=== PATIENT | male | born 1980 | race Caucasian/White ===

== ENCOUNTER 2022-09-05 08:37 | Emergency (ER) | payer SELFPAY ==
[2022-09-05] MEDS ORDERED: ONDANSETRON 4 MG/2 ML VIAL ONE (09:17)
[2022-09-05] MEDS ORDERED: NA CHLORIDE 0.9% 1,000 ML ONE ×2 (09:18→11:02)
[2022-09-05 09:24] LABS: Urine Blood Trace-intact (Negative); Urine Glucose Negative (Negative); Urine Protein 3+ (Negative); Urine Specific Gravity >=1.030 (1.005-1.030)
[2022-09-05 09:49] LABS: Absolute Lymphocytes (CBC) 1.9 K/uL (0.7-4.9); Hematocrit 48.8 % (39.6-49.0); Lymphocytes % 24.9 % (15.3-44.8); MCV 88.9 fL (80-100); MPV 8.1 fL (7.6-11.3); RBC Red Blood Cell Count 5.48 M/uL (4.33-5.43)
[2022-09-05 10:30] LABS: Albumin 4.1 g/dL (3.4-5.0); Bilirubin Total 0.5 mg/dL (0.2-1.0); Potassium 3.8 mmol/L (3.5-5.1)
--- NOTE | 2022-09-05 10:56 | EDPHYS ---
Physician Documentation [facility] Name: Noam Eli Age: 42 yrs Sex: Male : 1980 Arrival Date: 09/05/2022 Time: 08:42 Bed 12 Private MD: ED Physician Jacobo Lara HPI: 09/05 09:09 This 42 yrs old Male presents to ER via Ambulatory with complaints of Fever, Nausea, pm1 Body Aches. 09:09 The patient reports fever, that was measured at 100 degrees Fahrenheit. Onset: The pm1 symptoms/episode began/occurred 1 week(s) ago. Modifying factors: there are no obvious modifying factors. Associated signs and symptoms: Pertinent positives: cough, nausea, decreased appetite and PO consumption. Patient has been nibbling on food for the past week until last night, finally ate a full meal. Patient reports decreased PO fluids intake and reports dark urine. He is requesting IV fluids, Pertinent negatives: abdominal pain, chest pain, diarrhea, shortness of breath, sore throat, vomiting. Severity of symptoms: in the emergency department the symptoms have improved. The patient has not recently seen a physician, out of town, in [place]. Patient is here for work. Patient reports that he needs to be checked out in the ER prior to returning to work. Historical: - Allergies: 08:57 No Known Allergies; ss - PMHx: 08:57 Anxiety; Hypertensive disorder; Hypothyroidism; ss - Immunization history:: Client reports having NOT received the Covid vaccine. - Social history:: Smoking status: Patient reports the use of cigarette tobacco products, smokes one-half pack cigarettes per day. ROS: 09:09 Eyes: Negative for injury, pain, redness, and discharge, ENT: Negative for injury, pm1 pain, and discharge, Cardiovascular: Negative for chest pain, palpitations, and edema. 09:09 Back: Negative for injury and pain. 09:09 MS/Extremity: Negative for injury and deformity, Skin: Negative for injury, rash, and discoloration. 09:09 Neuro: Negative for headache, weakness, numbness, tingling, and seizure. 09:09 Constitutional: Positive for body aches, fever, poor PO intake. 09:09 Respiratory: Positive for cough, similar to his smoker's cough, Negative for shortness of breath. 09:09 Abdomen/GI: Positive for nausea, Negative for abdominal pain, vomiting, diarrhea. 09:09 : Positive for Dark urination and decreased amount of urine. Urinated only 4 times yesterday, Negative for flank pain, burning with urination. 09:09 All other systems are negative. Exam: 09:09 Constitutional: This is a well developed, well nourished patient who is awake, alert, pm1 and in no acute distress. Head/Face: Normocephalic, atraumatic. 09:09 Back: No spinal tenderness. No costovertebral tenderness. Full range of motion. Skin: Warm, dry with normal turgor. Normal color with no rashes, no lesions, and no evidence of cellulitis. MS/ Extremity: Pulses equal, no cyanosis. Neurovascular intact. Full, normal range of motion. 09:09 Eyes: Exam is negative for acute changes, Periorbital structures: appear normal, Extraocular movements: no acute changes, Conjunctiva: no acute changes, no injection. 09:09 ENT: Exam is negative for acute changes, Mouth: no acute changes, Lips: normal, moist, Oral mucosa: normal, pink and intact, moist. 09:09 Neck: Exam negative for acute changes. 09:09 Cardiovascular: Exam negative for acute changes, Rate: normal, Rhythm: regular, Pulses: no pulse deficits are appreciated, Heart sounds: normal, normal S1and S2. 09:09 Respiratory: Exam negative for acute changes, respiratory distress, shortness of breath, Breath sounds: are clear throughout. 09:09 Abdomen/GI: Inspection: obese Palpation: abdomen is soft and non-tender, in all quadrants. 09:09 Neuro: Exam negative for acute changes, Orientation: is normal, Mentation: is normal, Motor: is normal, moves all fours. Vital Signs: 08:55 BP 153 / 103; Pulse 91; Resp 16; Temp 98.2(O); Pulse Ox 100% on R/A; Weight 136.08 kg; ss Height 6 ft. 0 in. (182.88 cm); Pain 0/10; 08:55 Body Mass Index 40.69 (136.08 kg, 182.88 cm) ss MDM: 08:57 Patient medically screened. pm1 09:16 Data reviewed: vital signs. Data interpreted: Pulse oximetry: on room air is 100 %. pm1 Interpretation: normal. 09:16 ED course: Patient refused chest x-ray. pm1 10:53 Counseling: I had a detailed discussion with the patient and/or guardian regarding: the pm1 historical points, exam findings, and any diagnostic results supporting the discharge/admit diagnosis, lab results, radiology results, the need for outpatient follow up, to return to the emergency department if symptoms worsen or persist or if there are any questions or concerns that arise at home. 11:02 ED course: Patient requested another bag of IV fluids since he has not urinated with pm1 the initial IV fluids given. Zofran effective for his nausea. Will discharge the patient home with Zofran post IV fluid infusion. 09/05 08:57 Order name: CBC with Diff; Complete Time: 10:21 pm1 09/05 08:57 Order name: CMP; Complete Time: 10:53 pm1 09/05 08:57 Order name: Flu; Complete Time: 10:21 pm1 09/05 08:57 Order name: COVID-19 SARS RT PCR (Document "Date of Onset" if Symptomatic); Complete pm1 Time: 10:21 09/05 09:24 Order name: Urine Dipstick-Ancillary; Complete Time: 09:35 EDMS 09/05 08:57 Order name: IV Saline Lock; Complete Time: 09:42 pm1 09/05 08:57 Order name: Labs collected and sent; Complete Time: 09:42 pm1 09/05 08:57 Order name: Urine Dipstick-Ancillary (obtain specimen); Complete Time: 09:27 pm1 Administered Medications: 09:42 Drug: NS 0.9% 1000 ml Route: IV; Rate: 1 bolus; Site: left antecubital; ss 11:06 Follow up: IV Status: Completed infusion; IV Intake: 1000ml ss 09:43 Drug: Zofran (Ondansetron) 4 mg Route: IVP; Site: left antecubital; ss 11:07 Follow up: Response: No adverse reaction ss 11:06 Drug: NS 0.9% 1000 ml Route: IV; Rate: 1 bolus; Site: left antecubital; ss 11:53 Follow up: IV Status: Completed infusion; IV Intake: 1000ml ss Disposition Summary: 09/05/22 10:55 Discharge Ordered Location: Home pm1 Problem: new pm1 Symptoms: have improved pm1 Condition: Stable pm1 Diagnosis - Nausea pm1 - Viral infection, unspecified pm1 Followup: pm1 - With: Emergency Department - When: As needed - Reason: Worsening of condition Followup: pm1 - With: Private Physician - When: 2 - 3 days - Reason: Recheck today's complaints, Continuance of care, Re-evaluation by your physician Discharge Instructions: - Discharge Summary Sheet ss - Nausea, Adult pm1 - Viral Illness, Adult pm1 Forms: - Work release form ss - Medication Reconciliation Form pm1 - Thank You Letter pm1 - Antibiotic Education pm1 - Prescription Opioid Use pm1 Prescriptions: - ondansetron 4 mg Oral tablet,disintegrating - take 1 tablet by ORAL route every 8 hours As needed; 10 tablet; Refills: 0, pm1 Product Selection Permitted Signatures: Dispatcher [employer] Sonia Titus, RN RN ss Ayo Romero, FOLDING MACHINE OPERATOR FOLDING MACHINE OPERATOR pm1
--- NOTE | 2022-09-05 10:56 | ER ---
Nurse's Notes [facility] Name: Noam Eli Age: 42 yrs Sex: Male : 1980 Arrival Date: 09/05/2022 Time: 08:42 Bed 12 Private MD: Diagnosis: Nausea;Viral infection, unspecified Presentation: 09/05 08:55 Chief complaint: Patient states: fever, N/V and body aches x 1 week. Pt states he is ss feeling better, but still feels dehydrated. Requesting note for work. Coronavirus screen: Client presents with at least one sign or symptom that may indicate coronavirus-19. Ebola Screen: Patient denies exposure to infectious person. Patient denies travel to an Ebola-affected area in the 21 days before illness onset. Initial Sepsis Screen: Does the patient meet any 2 criteria? No. Patient's initial sepsis screen is negative. Does the patient have a suspected source of infection? No. Patient's initial sepsis screen is negative. Risk Assessment: Do you want to hurt yourself or someone else? Patient reports no desire to harm self or others. Onset of symptoms was August 29, 2022. 08:55 Method Of Arrival: Ambulatory ss 08:55 Acuity: NO 3 ss Historical: - Allergies: 08:57 No Known Allergies; ss - PMHx: 08:57 Anxiety; Hypertensive disorder; Hypothyroidism; ss - Immunization history:: Client reports having NOT received the Covid vaccine. - Social history:: Smoking status: Patient reports the use of cigarette tobacco products, smokes one-half pack cigarettes per day. Screenin:17 Abuse screen: Denies threats or abuse. Denies injuries from another. Nutritional ss screening: No deficits noted. Tuberculosis screening: Never had TB. Fall Risk None identified. Assessment: 11:17 Reassessment: Patient appears in no apparent distress at this time. Patient and/or ss family updated on plan of care and expected duration. Pain level reassessed. Patient is alert, oriented x 3, equal unlabored respirations, skin warm/dry/pink. Pt requested second bag of IV fluid. Ayo states ok to give now and discharge after fluids are completed. 11:53 Reassessment: Patient appears in no apparent distress at this time. Patient and/or ss family updated on plan of care and expected duration. Pain level reassessed. Patient denies pain at this time. Patient states feeling better. Patient states symptoms have improved. Vital Signs: 08:55 BP 153 / 103; Pulse 91; Resp 16; Temp 98.2(O); Pulse Ox 100% on R/A; Weight 136.08 kg; ss Height 6 ft. 0 in. (182.88 cm); Pain 0/10; 08:55 Body Mass Index 40.69 (136.08 kg, 182.88 cm) ss ED Course: 08:42 Patient arrived in ED. rg4 08:55 Ayo Romero, ARIEL is PHCP. pm1 08:55 Jacobo Lara MD is Attending Physician. pm1 08:57 Triage completed. ss 08:57 Arm band placed on right wrist. ss 09:26 Sonia Zelaya, ANDRAE is Primary Nurse. ss 09:42 Inserted saline lock: 20 gauge in left antecubital area, using aseptic technique. Blood ss collected. Patient maintains SpO2 saturation greater than 95% on room air. 11:17 Patient has correct armband on for positive identification. ss 11:54 No provider procedures requiring assistance completed. Patient did not have IV access ss during this emergency room visit. Administered Medications: 09:42 Drug: NS 0.9% 1000 ml Route: IV; Rate: 1 bolus; Site: left antecubital; ss 11:06 Follow up: IV Status: Completed infusion; IV Intake: 1000ml ss 09:43 Drug: Zofran (Ondansetron) 4 mg Route: IVP; Site: left antecubital; ss 11:07 Follow up: Response: No adverse reaction ss 11:06 Drug: NS 0.9% 1000 ml Route: IV; Rate: 1 bolus; Site: left antecubital; ss 11:53 Follow up: IV Status: Completed infusion; IV Intake: 1000ml ss Medication: 11:17 VIS not applicable for this client. ss Intake: 11:06 IV: 1000ml; Total: 1000ml. ss 11:53 IV: 1000ml; Total: 2000ml. ss Outcome: 10:55 Discharge ordered by . pm1 11:54 Discharged to home ambulatory. ss 11:54 Condition: improved 11:54 Discharge instructions given to patient, family, Instructed on discharge instructions, follow up and referral plans. medication usage, Demonstrated understanding of instructions, follow-up care, medications. 11:55 Patient left the ED. ss Signatures: Sonia Zelaya, RN RN ss Ayo Romero, APPRENTICESHIP REPRESENTATIVE APPRENTICESHIP REPRESENTATIVE pm1 Kasandra Burns 4
[2022-09-05 12:16] VITALS: BP 153/103; TEMP 98.2; O2SAT 100
== END 2022-09-05 11:55 | disposition home or self-care (01) ==
LOC: ER 08:37
DX: R11.0 Nausea (principal); B34.9 Viral infection, unspecified; Z20.822 Contact with and (suspected) exposure to COVID-19; F17.210 Nicotine dependence, cigarettes, uncomplicated
CPT/HCPCS: 36415; 80053; 81003; 85025; 87804; 96361; 96374; 99284; J2405; J7030; U0003

== ENCOUNTER 2022-10-23 18:03 | Emergency (ER) | payer SELFPAY ==
--- NOTE | 2022-10-23 19:21 | EDPHYS ---
Physician Documentation [facility] Name: Noam Eli Age: 42 yrs Sex: Male : 1980 Arrival Date: 10/23/2022 Time: 18:04 Bed 27 Private MD: ED Physician Krishan Long HPI: 10/23 19:47 This 42 yrs old Male presents to ER via Unassigned with complaints of Sore Throat. kb 19:47 The patient presents with sore throat. The patient describes throat pain as constant. kb Onset: The symptoms/episode began/occurred this morning. Severity of symptoms: At their worst the symptoms were moderate, in the emergency department the symptoms are unchanged. Modifying factors: The symptoms are alleviated by nothing, the symptoms are aggravated by swallowing. Associated signs and symptoms: Pertinent positives: Sore throat. The patient has not experienced similar symptoms in the past. The patient has not recently seen a physician. Pt states he has been around a few coworkers with strep and he developed a sore throat this morning. States he is prone to getting strep so he wanted to catch it before it got bad. ROS: 19:46 Constitutional: Negative for fever, chills, and weight loss. kb 19:46 ENT: Positive for sore throat. 19:46 All other systems are negative. Exam: 19:46 Constitutional: This is a well developed, well nourished patient who is awake, alert, kb and in no acute distress. Head/Face: Normocephalic, atraumatic. Cardiovascular: Regular rate and rhythm with a normal S1 and S2. No gallops, murmurs, or rubs. No pulse deficits. Respiratory: Respirations even and unlabored. No increased work of breathing. Talking in full sentences Skin: Warm, dry with normal turgor. Normal color. MS/ Extremity: Pulses equal, no cyanosis. Neurovascular intact. Full, normal range of motion. Neuro: Awake and alert, GCS 15, oriented to person, place, time, and situation. Moves all extremities. Normal gait. Psych: Awake, alert, with orientation to person, place and time. Behavior, mood, and affect are within normal limits. 19:46 ENT: Posterior pharynx: Airway: normal, Tonsils: bilaterally enlarged, with erythema, Uvula: normal, midline, swelling, that is mild, that is moderate, erythema, that is moderate. Vital Signs: 19:44 BP 137 / 72; Pulse 87; Resp 17; Temp 97.8; Pulse Ox 98% on R/A; kd3 MDM: 18:41 Patient medically screened. kb 19:46 Data reviewed: vital signs, nurses notes. Data interpreted: Pulse oximetry: on room air kb is 98 %. Interpretation: normal. Counseling: I had a detailed discussion with the patient and/or guardian regarding: the historical points, exam findings, and any diagnostic results supporting the discharge/admit diagnosis, lab results, the need for outpatient follow up, a family practitioner, to return to the emergency department if symptoms worsen or persist or if there are any questions or concerns that arise at home. 10/23 18:41 Order name: Strep; Complete Time: 19:21 kb 10/23 19:18 Order name: Throat Culture EDMS Administered Medications: No medications were administered Disposition: 10/24 10:52 Co-signature as Attending Physician, Krishan Long MD I agree with the assessment and kdr plan of care. Disposition Summary: 10/23/22 19:21 Discharge Ordered Location: Home kb Condition: Stable kb Diagnosis - Acute tonsillitis, unspecified kb Followup: kb - With: Emergency Department - When: As needed - Reason: Worsening of condition Followup: kb - With: Private Physician - When: 2 - 3 days - Reason: Recheck today's complaints, Continuance of care, Re-evaluation by your physician Discharge Instructions: - Discharge Summary Sheet kb - Tonsillitis, [id number] kb Forms: - Medication Reconciliation Form kb - Thank You Letter kb - Antibiotic Education kb - Prescription Opioid Use kb Prescriptions: - Augmentin 875-125 mg Oral Tablet - take 1 tablet by ORAL route every 12 hours for 10 days; 20 tablet; Refills: 0, kb Product Selection Permitted Signatures: Dispatcher [employer] EDMS Lian Quan FNP-C FNP-Ckb Rittger, Kevin, MD MD kdr
--- NOTE | 2022-10-23 20:23 | ER ---
Nurse's Notes [facility] Name: Noam Eli Age: 42 yrs Sex: Male : 1980 Arrival Date: 10/23/2022 Time: 18:04 Bed 27 Private MD: Diagnosis: Acute tonsillitis, unspecified Vital Signs: 10/23 19:44 BP 137 / 72; Pulse 87; Resp 17; Temp 97.8; Pulse Ox 98% on R/A; kd3 ED Course: 18:04 Patient arrived in ED. as 18:11 Lian Quan FNP-C is [facility]. kb 18:11 Krishan Long MD is Attending Physician. kb 20:04 Patient's name was called from ER lobby. No response. melyssa Administered Medications: No medications were administered Outcome: 19:21 Discharge ordered by . kb 20:22 Patient left the ED. kd3 Signatures: Lian Quan FNP-C FNP-Ckb Martinez, Amelia as Ballard, Brenda, RN RN Betty Malloy RN RN kd3
[2022-10-23 23:25] VITALS: BP 137/72; TEMP 97.8; O2SAT 98
== END 2022-10-23 20:22 | disposition home or self-care (01) ==
LOC: ER 18:03
DX: J03.90 Acute tonsillitis, unspecified (principal)
CPT/HCPCS: 87070; 87081; 99281

== ENCOUNTER 2022-10-31 19:32 | Emergency (ER) | payer SELFPAY ==
[2022-10-31] MEDS ORDERED: METOPROLOL XL 50 MG TAB PO ONE (20:27)
[2022-10-31] MEDS ORDERED: lisinopriL 20 MG TAB ONE (20:27)
[2022-10-31] MEDS ORDERED: NA CHLORIDE 0.9% 1,000 ML ONE (20:45)
[2022-10-31 20:46] LABS: Absolute Lymphocytes (CBC) 3.8 K/uL (0.7-4.9); Hematocrit 50.2 % (39.6-49.0); Lymphocytes % 25.8 % (15.3-44.8); MCV 90.4 fL (80-100); MPV 7.4 fL (7.6-11.3); RBC Red Blood Cell Count 5.55 M/uL (4.33-5.43)
[2022-10-31] MEDS ORDERED: DIAZEPAM 5 MG TABLET ONE (20:58)
[2022-10-31 21:06] LABS: Albumin 4.2 g/dL (3.4-5.0); Bilirubin Direct 0.1 mg/dL (0-0.2); Bilirubin Total 0.4 mg/dL (0.2-1.0); Potassium 3.9 mmol/L (3.5-5.1)
--- NOTE | 2022-10-31 21:51 | EDPHYS ---
Physician Documentation [facility] Name: Noam Eli Age: 42 yrs Sex: Male : 1980 Arrival Date: 10/31/2022 Time: 19:36 Bed DIS1 Private MD: ED Physician Romain Malcolm HPI: 10/31 19:54 This 42 yrs old Male presents to ER via Ambulatory with complaints of High Blood rn Pressure. 19:54 The patient has elevated blood pressure and discovered this at home. Onset: The rn symptoms/episode began/occurred this morning. Modifying factors: The symptoms are aggravated by discontinuation of meds. Associated signs and symptoms: Pertinent positives: headache, Pertinent negatives: chest pain, vomiting, weakness. Severity of symptoms: At its worst the blood pressure was moderate, in the emergency department the blood pressure is unchanged. The patient has experienced similar episodes in the past. The patient has not recently seen a physician. Pt reports binge with ETOH last night, didn't take his medication today, normally takes lisinopril and metoprolol. Reports feels anxious, palpitations, generalized weakness and fatigue. + smoker. No chest pain. No focal neuro complaints. . Historical: - Allergies: 19:47 No Known Allergies; vc1 - PMHx: 19:47 Anxiety; Hypertensive disorder; Hypothyroidism; vc1 - Immunization history:: Adult Immunizations up to date. - Social history:: Smoking status: Patient reports the use of cigarette tobacco products, smokes one pack cigarettes per day. - Family history:: not pertinent. - Hospitalizations: : No recent hospitalization is reported. ROS: 19:54 Constitutional: Negative for fever, chills, and weight loss, Eyes: Negative for injury, rn pain, redness, and discharge, Neck: Negative for injury, pain, and swelling, Cardiovascular: Negative for chest pain, and edema, Respiratory: Negative for shortness of breath, cough, wheezing, and pleuritic chest pain, Abdomen/GI: Negative for abdominal pain, nausea, vomiting, diarrhea, and constipation, Back: Negative for injury and pain, MS/Extremity: Negative for injury and deformity, Skin: Negative for injury, rash, and discoloration, Neuro: Negative for numbness, tingling, and seizure. Exam: 19:54 Constitutional: This is a well developed, well nourished patient who is awake, alert, rn anxious and flushed Head/Face: Normocephalic, atraumatic. Eyes: Periorbital areas with no swelling, redness, or edema. Cardiovascular: Tachycardic, regular. No pulse deficits. Respiratory: No increased work of breathing, no retractions or nasal flaring. Abdomen/GI: Soft, non-tender Skin: Warm, dry MS/ Extremity: Pulses equal, no cyanosis. Neuro: Awake and alert, GCS 15, oriented to person, place, time, and situation. Cranial nerves II-XII grossly intact. Motor strength 5/5 in all extremities. Sensory grossly intact. Cerebellar exam normal. Normal gait. 20:42 ECG was reviewed by the Attending Physician. rn Vital Signs: 19:43 BP 167 / 113; Pulse 124; Resp 18; Temp 98.7; Pulse Ox 97% ; Weight 136.08 kg; Height 6 vc1 ft. 0 in. (182.88 cm); 22:08 BP 140 / 83; eh3 19:43 Body Mass Index 40.69 (136.08 kg, 182.88 cm) vc1 MDM: 19:42 Patient medically screened. rn 20:44 Refusal of service: The patient/guardian displays adequate decision making capability rn and despite a detailed discussion of alternatives, benefits, risks, and consequences refuses: all X-rays. 21:48 Differential diagnosis: hypertensive crisis, Malignant HTN. Data reviewed: vital signs, rn nurses notes, lab test result(s), EKG, and as a result, I will discharge patient. Counseling: I had a detailed discussion with the patient and/or guardian regarding: the historical points, exam findings, and any diagnostic results supporting the discharge/admit diagnosis, lab results, the need for outpatient follow up, to return to the emergency department if symptoms worsen or persist or if there are any questions or concerns that arise at home. Response to treatment: the patient's symptoms have markedly improved after treatment, the patient's condition has returned to base line, the patient is now symptom free, patient is well hydrated. and as a result, I will discharge patient. Special discussion: I discussed with the patient/guardian in detail that at this point there is no indication for admission to the hospital. It is understood, however, that if the symptoms persist or worsen the patient needs to return immediately for re-evaluation. Based on the history and exam findings, there is no indication for further emergent testing or inpatient evaluation. I discussed with the patient/guardian the need to see the primary care provider for further evaluation of the symptoms. ED course: Pt feels much better, return to baseline, requests to be discharged. Neg trop, no kidney damage, improvement of BP. . 10/31 19:51 Order name: Basic Metabolic Panel; Complete Time: 21:14 rn 10/31 19:51 Order name: CBC with Diff; Complete Time: 21:14 rn 10/31 19:51 Order name: LFT's; Complete Time: 21:14 rn 10/31 19:51 Order name: Troponin HS; Complete Time: 21:14 rn 10/31 19:51 Order name: EKG; Complete Time: 19:52 rn 10/31 19:51 Order name: Cardiac monitoring; Complete Time: 20:45 rn 10/31 19:51 Order name: EKG - Nurse/Tech; Complete Time: 20:39 rn 10/31 19:51 Order name: IV Saline Lock; Complete Time: 20:33 rn 10/31 19:51 Order name: Labs collected and sent; Complete Time: 20:33 rn 10/31 19:51 Order name: O2 Per Protocol; Complete Time: 20:29 rn 10/31 19:51 Order name: O2 Sat Monitoring; Complete Time: 20:29 rn EC:42 Rate is 109 beats/min. Rhythm is regular. QRS [place] is Normal. [place] interval is normal. rn QRS interval is normal. QT interval is normal. No Q waves. T waves are Normal. No ST changes noted. Clinical impression: Sinus tachycardia. Interpreted by me. Reviewed by me. Administered Medications: 20:27 Drug: Metoprolol TARTRATE 50 mg Route: PO; vc1 22:15 Follow up: Response: Blood pressure is lowered eh3 20:27 Drug: Lisinopril 20 mg Route: PO; vc1 22:15 Follow up: Response: Blood pressure is lowered eh3 20:45 Drug: NS 0.9% 1000 ml Route: IV; Rate: 1000 ml; Site: right antecubital; jh5 22:15 Follow up: IV Status: Completed infusion; IV Intake: 1000ml eh3 21:14 Drug: Valium (diazepam) 5 mg Route: PO; jh5 22:14 Follow up: Response: Anxiety decreased eh3 Disposition Summary: 10/31/22 21:50 Discharge Ordered Location: Home rn Problem: new rn Symptoms: have improved rn Condition: Stable rn Diagnosis - Essential (primary) hypertension rn - Anxiety disorder, unspecified rn Followup: rn - With: Private Physician - When: As needed - Reason: Recheck today's complaints, Re-evaluation by your physician Discharge Instructions: - Discharge Summary Sheet rn - Hypertension, Adult rn - Social Anxiety Disorder, Adult rn Forms: - Medication Reconciliation Form rn - Thank You Letter rn - Antibiotic varnish dipper - Prescription Opioid Use rn - Work release form 3 Signatures: Dispatcher [employer] EDMS Romain Malcolm MD MD rn Rees, Jessica RN RN 5 Shasha Pineda RN RN vc1 Pat Garcia RN 3 Corrections: (The following items were deleted from the chart) 20:48 19:52 Chest Single View+[email or web address] ordered. EDPA EDPA
--- NOTE | 2022-10-31 21:51 | ER ---
Nurse's Notes [facility] Name: Noam Eli Age: 42 yrs Sex: Male : 1980 Arrival Date: 10/31/2022 Time: 19:36 Bed DIS1 Private MD: Diagnosis: Essential (primary) hypertension;Anxiety disorder, unspecified Presentation: 10/31 19:43 Chief complaint: Patient states: usually takes metoprolol and lisinopril daily for HTN vc1 but didn't today; also hasnt drank in over a year and then went on a drinking binge last night. Coronavirus screen: Vaccine status: Patient reports being unvaccinated. Client denies travel out of the [place] in the last 14 days. Ebola Screen: Patient negative for fever greater than or equal to 101.5 degrees Fahrenheit, and additional compatible Ebola Virus Disease symptoms Patient denies exposure to infectious person. Patient denies travel to an Ebola-affected area in the 21 days before illness onset. Initial Sepsis Screen: Does the patient meet any 2 criteria? No. Patient's initial sepsis screen is negative. Does the patient have a suspected source of infection? No. Patient's initial sepsis screen is negative. Risk Assessment: Do you want to hurt yourself or someone else? Patient reports no desire to harm self or others. 19:43 Method Of Arrival: Ambulatory vc1 19:43 Acuity: NO 3 vc1 Triage Assessment: 19:47 General: Appears uncomfortable, obese, Behavior is calm, cooperative, appropriate for vc1 age. Pain: Complains of pain in head. Historical: - Allergies: 19:47 No Known Allergies; vc1 - PMHx: 19:47 Anxiety; Hypertensive disorder; Hypothyroidism; vc1 - Immunization history:: Adult Immunizations up to date. - Social history:: Smoking status: Patient reports the use of cigarette tobacco products, smokes one pack cigarettes per day. - Family history:: not pertinent. - Hospitalizations: : No recent hospitalization is reported. Vital Signs: 19:43 BP 167 / 113; Pulse 124; Resp 18; Temp 98.7; Pulse Ox 97% ; Weight 136.08 kg; Height 6 vc1 ft. 0 in. (182.88 cm); 22:08 BP 140 / 83; eh3 19:43 Body Mass Index 40.69 (136.08 kg, 182.88 cm) vc1 ED Course: 19:36 Patient arrived in ED. bp1 19:42 Romain Malcolm MD is Attending Physician. rn 19:47 Triage completed. vc1 19:47 Arm band placed on right wrist. vc1 Administered Medications: 20:27 Drug: Metoprolol TARTRATE 50 mg Route: PO; vc1 22:15 Follow up: Response: Blood pressure is lowered eh3 20:27 Drug: Lisinopril 20 mg Route: PO; vc1 22:15 Follow up: Response: Blood pressure is lowered eh3 20:45 Drug: NS 0.9% 1000 ml Route: IV; Rate: 1000 ml; Site: right antecubital; jh5 22:15 Follow up: IV Status: Completed infusion; IV Intake: 1000ml eh3 21:14 Drug: Valium (diazepam) 5 mg Route: PO; jh5 22:14 Follow up: Response: Anxiety decreased eh3 Intake: 22:15 IV: 1000ml; Total: 1000ml. eh3 Outcome: 21:50 Discharge ordered by . rn 22:14 Patient left the ED. eh3 Signatures: Romain Malcolm MD MD rn Paniauga, Brittany bp1 Rees, Jessica, RN RN 5 Shasha Pineda RN RN 1 Pat Garcia RN RN 3
[2022-10-31 22:20] VITALS: TEMP 98.7; O2SAT 97
[2022-10-31 22:21] VITALS: BP 140/83
--- NOTE | 2022-11-02 08:07 | EKG ---
Test Date: 2022-10-31 Test Time: 20:39:23 Field Geologist: MEASUREMENT RESULTS: Intervals: Rate: 109 [place]: 116 QRSD: 84 QT: 324 QTc: 436 [place]: P: 13 [place]: 116 QRS: 53 T: 38 INTERPRETIVE STATEMENTS: Sinus tachycardia Otherwise normal ECG No previous ECG available for comparison Electronically Signed On 11-02-22 08:02:11 DIRECTOR OF ADULT EPILEPSY by Vaughn Harman
== END 2022-10-31 22:14 | disposition home or self-care (01) ==
LOC: ER 19:32
DX: I10 Essential (primary) hypertension (principal); F41.9 Anxiety disorder, unspecified; F17.210 Nicotine dependence, cigarettes, uncomplicated
CPT/HCPCS: 36415; 80048; 80076; 84484; 85025; 93005; 96360; 99282; J7030

== ENCOUNTER 2022-12-06 23:17 | Emergency (ER) | payer SELFPAY ==
--- NOTE | 2022-12-07 00:06 | ER ---
Nurse's Notes [facility] Name: Noam Eli Age: 42 yrs Sex: Male : 1980 Arrival Date: 12/06/2022 Time: 23:19 Bed 20 Private MD: Diagnosis: Panic disorder [episodic paroxysmal anxiety] without agoraphobia Presentation: 12/06 23:39 Chief complaint: Patient states: I have been having a lot of anxiety, i cant sleep. kd3 They doubled up on my medications. I think the meds are making me worse. I have not been eating well. Coronavirus screen: Vaccine status: Patient reports being unvaccinated. Ebola Screen: No symptoms or risks identified at this time. Initial Sepsis Screen: Does the patient meet any 2 criteria? No. Patient's initial sepsis screen is negative. Does the patient have a suspected source of infection? No. Patient's initial sepsis screen is negative. Risk Assessment: Do you want to hurt yourself or someone else? Patient reports no desire to harm self or others. Onset of symptoms was December 06, 2022. 23:39 Method Of Arrival: Ambulatory kd3 23:39 Acuity: NO 4 kd3 Triage Assessment: 23:43 General: Appears uncomfortable, Behavior is cooperative, anxious. Pain: Denies pain. kd3 GI: Reports nausea. Historical: - Allergies: 23:43 No Known Allergies; kd3 - Home Meds: 23:43 clonidine HCl 0.1 mg Oral tab 1 tab bedtime [Active]; metoprolol tartrate 100 mg Oral kd3 tab 1 tab bedtime [Active]; levothyroxine 75 mcg tab 1 tab once daily [Active]; losartan 100 mg oral tab 1 tab bedtime [Active]; diclofenac sodium 25 mg oral TbEC 1 tab every 12 hours [Active]; citalopram 40 mg tab 1 tab once daily [Active]; - PMHx: 23:43 Anxiety; Hypertensive disorder; Hypothyroidism; kd3 - Immunization history:: Adult Immunizations up to date. - Social history:: Smoking status: Patient reports the use of cigarette tobacco products, smokes one-half pack cigarettes per day. Screenin/19 00:00 [facility] ED Fall Risk Assessment (Adult) History of falling in the last 3 months, vc1 including since admission No falls in past 3 months (0 pts) Confusion or Disorientation No (0 pts) Intoxicated or Sedated No (0 pts) Impaired Gait No (0 pts) Mobility Assist Device Used No (0 pt) Altered Elimination No (0 pt) Score/Fall Risk Level 0 - 2 = Low Risk Oriented to surroundings, Maintained a safe environment, Educated pt \T\ family on fall prevention, incl call for assistance when getting out of bed. Abuse screen: Denies threats or abuse. Nutritional screening: No deficits noted. Tuberculosis screening: No symptoms or risk factors identified. Assessment: 00:00 GI: Abdomen is round non-distended, Reports nausea. vc1 Vital Signs: 12/06 23:39 BP 139 / 55; Pulse 79; Resp 16; Temp 98.9; Pulse Ox 100% ; Weight 129.27 kg; Height 6 kd3 ft. (182.88 cm); Pain 0/10; 23:39 Body Mass Index 38.65 (129.27 kg, 182.88 cm) kd3 ED Course: 23:19 Patient arrived in ED. ja2 23:20 Rach Saldivar FNP-C is PHCP. snw 23:20 Jacobo Lara MD is Attending Physician. snw 23:43 Triage completed. kd3 23:43 Arm band placed on left wrist. kd3 12/07 00:00 Patient has correct armband on for positive identification. Bed in low position. Call vc1 light in reach. 00:25 Shasha Pineda, RN is Primary Nurse. vc1 00:26 No provider procedures requiring assistance completed. Patient did not have IV access vc1 during this emergency room visit. Administered Medications: 00:13 Drug: Ativan (LORazepam) 1 mg Route: PO; vc1 00:25 Follow up: Response: Medication administered at discharge. vc1 00:25 Drug: Zofran (Ondansetron) 4 mg Route: PO; vc1 00:25 Follow up: Response: Medication administered at discharge. vc1 Medication: 00:27 VIS not applicable for this client. vc1 Outcome: 00:05 Discharge ordered by . snw 00:26 Discharged to home ambulatory. vc1 00:26 Condition: good 00:26 Discharge instructions given to patient, Instructed on discharge instructions, follow up and referral plans. medication usage, Demonstrated understanding of instructions, follow-up care, medications, Prescriptions given X 2. 00:27 Patient left the ED. vc1 Signatures: Rach Saldivar, OVER SHORT AND DAMAGE CLERK-C OVER SHORT AND DAMAGE CLERK-Csnw Brandie Solo2 Betty Ragsdale, RN RN kd3 Shasha Pineda RN RN vc1
--- NOTE | 2022-12-07 00:06 | EDPHYS ---
Physician Documentation [facility] Name: Noam Eli Age: 42 yrs Sex: Male : 1980 Arrival Date: 12/06/2022 Time: 23:19 Bed 20 Private MD: ED Physician Jacobo Lara HPI: 12/07 00:09 This 42 yrs old Male presents to ER via Ambulatory with complaints of Anxiety, Nausea, snw Unable to Sleep. 00:09 The patient presents to the emergency department with anxiety, over a relationship, snw over work. Onset: The symptoms/episode began/occurred acutely. Past psychiatric history: Prior diagnosis: depression, panic disorder. Associated signs and symptoms: Pertinent positives; nausea. Severity of symptoms: At their worst the symptoms were moderate. The patient has experienced similar episodes in the past, multiple times. Lives in [place], will only be here a few more days. Saw Psych in [place], labs done for thyroid, etc. Went up on Citalopram. Pt states he cannot turn his brain off, cannot sleep, + nausea, . Historical: - Allergies: 12/06 23:43 No Known Allergies; kd3 - Home Meds: 23:43 clonidine HCl 0.1 mg Oral tab 1 tab bedtime [Active]; metoprolol tartrate 100 mg Oral kd3 tab 1 tab bedtime [Active]; levothyroxine 75 mcg tab 1 tab once daily [Active]; losartan 100 mg oral tab 1 tab bedtime [Active]; diclofenac sodium 25 mg oral TbEC 1 tab every 12 hours [Active]; citalopram 40 mg tab 1 tab once daily [Active]; - PMHx: 23:43 Anxiety; Hypertensive disorder; Hypothyroidism; kd3 - Immunization history:: Adult Immunizations up to date. - Social history:: Smoking status: Patient reports the use of cigarette tobacco products, smokes one-half pack cigarettes per day. ROS: 12/07 00:08 Eyes: Negative for injury, pain, redness, and discharge, ENT: Negative for injury, snw pain, and discharge, Neck: Negative for injury, pain, and swelling, Cardiovascular: Negative for chest pain, palpitations, and edema, Respiratory: Negative for shortness of breath, cough, wheezing, and pleuritic chest pain, Abdomen/GI: Negative for abdominal pain, nausea, vomiting, diarrhea, and constipation, Back: Negative for injury and pain, : Negative for injury, bleeding, discharge, and swelling, MS/Extremity: Negative for injury and deformity, Skin: Negative for injury, rash, and discoloration, Neuro: Negative for headache, weakness, numbness, tingling, and seizure. Constitutional: Positive for poor PO intake. Psych: Positive for anxiety. Exam: 00:07 Constitutional: This is a well developed, well nourished patient who is awake, alert, snw and in no acute distress. Head/Face: Normocephalic, atraumatic. Eyes: Pupils equal round and reactive to light, extra-ocular motions intact. Lids and lashes normal. Conjunctiva and sclera are non-icteric and not injected. Cornea within normal limits. Periorbital areas with no swelling, redness, or edema. ENT: Nares patent. No nasal discharge, no septal abnormalities noted. Tympanic membranes are normal and external auditory canals are clear. Oropharynx with no redness, swelling, or masses, exudates, or evidence of obstruction, uvula midline. Mucous membranes moist. Neck: Trachea midline, no thyromegaly or masses palpated, and no cervical lymphadenopathy. Supple, full range of motion without nuchal rigidity, or vertebral point tenderness. No Meningismus. Chest/axilla: Normal chest wall appearance and motion. Nontender with no deformity. No lesions are appreciated. Cardiovascular: Regular rate and rhythm with a normal S1 and S2. No gallops, murmurs, or rubs. Normal PMI, no JVD. No pulse deficits. Respiratory: Lungs have equal breath sounds bilaterally, clear to auscultation and percussion. No rales, rhonchi or wheezes noted. No increased work of breathing, no retractions or nasal flaring. Abdomen/GI: Soft, non-tender, with normal bowel sounds. No distension or tympany. No guarding or rebound. No evidence of tenderness throughout. Back: No spinal tenderness. No costovertebral tenderness. Full range of motion. Skin: Warm, dry with normal turgor. Normal color with no rashes, no lesions, and no evidence of cellulitis. MS/ Extremity: Pulses equal, no cyanosis. Neurovascular intact. Full, normal range of motion. Neuro: Awake and alert, GCS 15, oriented to person, place, time, and situation. Cranial nerves II-XII grossly intact. Motor strength 5/5 in all extremities. Sensory grossly intact. Cerebellar exam normal. Normal gait. 00:07 Psych: Behavior/mood is pleasant, cooperative, anxious, Affect is calm, Oriented to person, place, time, Patient has no thoughts/intents to harm self or others. Judgement / Insight is normal. Memory is normal. insomnia, unable to "turn it off". Vital Signs: 12/06 23:39 BP 139 / 55; Pulse 79; Resp 16; Temp 98.9; Pulse Ox 100% ; Weight 129.27 kg; Height 6 kd3 ft. (182.88 cm); Pain 0/10; 23:39 Body Mass Index 38.65 (129.27 kg, 182.88 cm) kd3 MDM: 23:50 Patient medically screened. zulma 12/07 00:11 Differential diagnosis: acute psychotic break, depression, insomnia/panic attack. Data snw reviewed: vital signs, nurses notes. I considered the following discharge prescriptions or medication management in the emergency department pt would like a med that is short acting so he can go to work in the am. Test considered but Not performed: Labs: TSH - has been done and was normal recently. Care significantly affected by the following chronic conditions: HTN, Anxiety, panic attacks, insomnia, hypothyroidism. Counseling: I had a detailed discussion with the patient and/or guardian regarding: the historical points, exam findings, and any diagnostic results supporting the discharge/admit diagnosis, the need for outpatient follow up, for definitive care, to return to the emergency department if symptoms worsen or persist or if there are any questions or concerns that arise at home. Special discussion: Based on the history and exam findings, there is no indication for further emergent testing or inpatient evaluation. I discussed with the patient/guardian the need to see the primary care provider for further evaluation of the symptoms. I discussed with the patient/guardian the need to see the psychiatrist for further evaluation of the symptoms. Administered Medications: 00:13 Drug: Ativan (LORazepam) 1 mg Route: PO; vc1 00:25 Follow up: Response: Medication administered at discharge. vc1 00:25 Drug: Zofran (Ondansetron) 4 mg Route: PO; vc1 00:25 Follow up: Response: Medication administered at discharge. vc1 Disposition Summary: 12/07/22 00:05 Discharge Ordered Location: Home snw Condition: Stable snw Diagnosis - Panic disorder [episodic paroxysmal anxiety] without agoraphobia snw Followup: snw - With: Emergency Department - When: As needed - Reason: Worsening of condition Followup: snw - With: Private Physician - When: 2 - 3 days - Reason: Recheck today's complaints, Continuance of care, Re-evaluation by your physician Discharge Instructions: - Discharge Summary Sheet snw - Panic Attack snw - Supporting Someone With Anxiety snw - Managing Anxiety, Adult snw Forms: - Medication Reconciliation Form snw - Thank You Letter snw - Antibiotic Education snw - Prescription Opioid Use snw - Work release form snw Prescriptions: - Valium 5 mg Oral Tablet - take 1 tablet by ORAL route once daily As needed; 6 tablet; Refills: 0, Product snw Selection Permitted - Zofran 4 mg Oral Tablet - take 1 tablet by ORAL route every 12 hours As needed; 20 tablet; Refills: 0, snw Product Selection Permitted Signatures: Jacobo Lara MD MD cha Waters, Shelly, LINE CLEANER-C LINE CLEANER-Csnw Betty Ragsdale, RN RN kd3 Shasha Pineda RN RN vc1
[2022-12-07] MEDS ORDERED: LORAZEPAM 1 MG TABLET ONE (00:15)
[2022-12-07] MEDS ORDERED: ONDANSETRON 4 MG (ODT) TAB ONE (00:25)
[2022-12-07 01:14] VITALS: BP 139/55; TEMP 98.9; O2SAT 100
== END 2022-12-07 00:27 | disposition home or self-care (01) ==
LOC: ER 23:17
DX: F41.0 Panic disorder [episodic paroxysmal anxiety] (principal); I10 Essential (primary) hypertension; E03.9 Hypothyroidism, unspecified; F17.210 Nicotine dependence, cigarettes, uncomplicated
CPT/HCPCS: 99283; Q0162